=== PATIENT | female | born 1940 | race Caucasian/White ===

== ENCOUNTER → 2018-09-12 08:54 | Outpatient (CLI) | payer MEDICARE ==
[2018-09-12 10:02] LABS: BASOPHILS 0.1 % (0-2); HEMATOCRIT 39.8 % (36.0-48.0); HEMOGLOBIN 12.4 g/dL (12-16); IMMATURE GRANULOCYTES 0.2 % (0-5); LYMPHOCYTES 19.2 % (15-50); MCH 25.9 pg (26.0-34.0); MCHC 31.2 g/dL (31.0-37.0); MCV 83.1 fL (80.0-100.0); MEAN PLATELET VOLUME 10.1 fL (7.4-10.4); MONOCYTES 5.8 % (2-11); NEUTROPHILS 72.7 % (40-80); PLATELET COUNT 337 10x3/uL (130-400); RBC 4.79 10x6/uL (4.00-5.40); RDW 16.8 % (11.5-14.5)
[2018-09-12 10:24] LABS: APTT 30.4 SECONDS (22.8-39.4); INR 1.08 (0.85-1.17); PROTIME 13.5 SECONDS (11.6-15.0)
[2018-09-12 10:25] LABS: % SATURATION 9 % (15-55); IRON 39 ug/dl (35-150); TOTAL IRON BIND CAPACITY 428 ug/dl (260-445); UNSAT IRON BIND CAPACITY 389 ug/dl (150-375)
[2018-09-12 10:33] LABS: ALBUMIN 3.3 g/dL (3.4-5.0); ANION GAP 13.2 mmol/L (8-16); BILIRUBIN - DIRECT 0.13 mg/dL (0.00-0.30); BILIRUBIN - INDIRECT 0.22 mg/dL (0.00-1.00); BILIRUBIN - TOTAL 0.35 mg/dL (0.2-1.3); CALCIUM 8.8 mg/dL (8.5-10.1); CARBON DIOXIDE 30.6 mmol/L (21.0-32.0); CHOL - HDL RATIO 6.2 ratio (2.3-4.1); CREATININE - SERUM 0.9 mg/dL (0.6-1.3); LDL-HDL RATIO 4.1 ratio (1.5-3.5); POTASSIUM - SERUM 3.8 mmol/L (3.5-5.1); PROTEIN - SERUM 8.3 g/dL (6.4-8.2)
[2018-09-13 08:18] LABS: HAPTOGLOBIN 298 mg/dL (34-200); HEPATITIS C ANTIBODY <0.1 S/CO RAT (0.0-0.9)
[2018-09-13 12:16] LABS: ANA REFLEX - DIRECT Negative (Negative)
[2018-09-13 13:16] LABS: ALPHA FETOPROTEIN -(TUMOR MRK) 4.8 ng/mL (0.0-8.3)
[2018-09-14 14:16] LABS: MITOCHONDRIAL ANTIBODY <20.0 Units (0.0-20.0); SMOOTH MUSCLE ABS (ACTIN) 11 Units (0-19)
== END | disposition home or self-care (01) ==
LOC: D.US 08:54
PROVIDERS: Internal Medicine Gastroenterology
DX: R93.89 Abnormal findings on diagnostic imaging of other specified body structures (principal); R74.8 Abnormal levels of other serum enzymes; K76.0 Fatty (change of) liver, not elsewhere classified; D64.9 Anemia, unspecified; K92.1 Melena

== ENCOUNTER → 2018-11-24 10:44 | Outpatient (CLI) | payer OTHER | END | disposition home or self-care (01) | LOC: D.CT 10:00 | PROVIDERS: ATTEND Internal Medicine Gastroenterology | DX: R93.5 Abnormal findings on diagnostic imaging of other abdominal regions, including retroperitoneum (principal) ==

== ENCOUNTER 2019-01-02 10:26 | Observation (INO) | payer OTHER ==
[~2019-01-02] VITALS: Ht 154.9 cm; Wt 88.0 kg
[2019-01-02 11:15] LABS: BASOPHILS 0.1 % (0-2); EOSINOPHILS 1.7 % (0-7); HEMATOCRIT 40.3 % (36.0-48.0); HEMOGLOBIN 12.7 g/dL (12-16); IMMATURE GRANULOCYTES 0.4 % (0-5); LYMPHOCYTES 27.8 % (15-50); MCHC 31.5 g/dL (31.0-37.0); MEAN PLATELET VOLUME 10.3 fL (7.4-10.4); MONOCYTES 5.4 % (2-11); NEUTROPHILS 64.6 % (40-80); PLATELET COUNT 270 10x3/uL (130-400); RBC 4.53 10x6/uL (4.00-5.40); RDW 14.6 % (11.5-14.5); WBC 8.1 10x3/uL (4.8-10.8)
[2019-01-02 11:48] LABS: ALBUMIN 3.4 g/dL (3.4-5.0); ALKALINE PHOSPHATASE 120 U/L (46-116); ALT (SGPT) 37 U/L (10-68); APTT 30.8 SECONDS (22.8-39.4); BILIRUBIN - TOTAL 0.35 mg/dL (0.2-1.3); CALC OSMOLALITY 280 mosm/kg (275-300); CALCIUM 9.5 mg/dL (8.5-10.1); CARBON DIOXIDE 32.6 mmol/L (21.0-32.0); CHLORIDE - SERUM 102 mmol/L (98-107); CREATININE - SERUM 0.9 mg/dL (0.6-1.3); GLUCOSE 149 mg/dL (74-106); INR 1.06 (0.85-1.17); POTASSIUM - SERUM 4.5 mmol/L (3.5-5.1); PROTEIN - SERUM 8.1 g/dL (6.4-8.2); PROTIME 13.3 SECONDS (11.6-15.0); SODIUM 140 mmol/L (136-145); UREA NITROGEN 9 mg/dL (7-18); eGFR NON AFRICAN AMERICAN 64 mL/min (90-120)
[2019-01-02 12:03] LABS: CKMB 0.3 U/L (0.0-3.6); CREATINE KINASE 16 UL (21-215); PRO BNP 251 pg/mL (0-450); THYROID STIMULATING HORMONE 0.55 uIU/mL (0.36-3.74); TROPONIN-I < 0.017 ng/mL (0.000-0.060)
[2019-01-02 12:25] LABS: UDS - AMPHET NEGATIVE QUAL (NEGATIVE); UDS - BARB NEGATIVE QUAL (NEGATIVE); UDS - BENZO NEGATIVE QUAL (NEGATIVE); UDS - COCAINE NEGATIVE QUAL (NEGATIVE); UDS - OPIATE NEGATIVE QUAL (NEGATIVE); UDS - PCP NEGATIVE QUAL (NEGATIVE); UDS - THC NEGATIVE QUAL (NEGATIVE)
[2019-01-02 12:50] LABS: APPEARANCE CLEAR (CLEAR); BILIRUBIN NEGATIVE (NEGATIVE); COLOR YELLOW (YELLOW); GLUCOSE NEGATIVE (NEGATIVE); KETONE NEGATIVE (NEGATIVE); NITRITE NEGATIVE (NEGATIVE); PROTEIN NEGATIVE (NEGATIVE); UROBILINOGEN NORMAL (NORMAL)
[2019-01-02 12:54] LABS: BACTERIA FEW /hpf (NONE SEEN); EPITHELIAL CELLS RARE /hpf (0-5); WHITE CELLS - URINE RARE /hpf (0-5)
[2019-01-02] MEDS ORDERED: PERCOCET 7.5/321 TAB PO (13:15)
[2019-01-02] MEDS ORDERED: EFFEXOR75 MG PO (13:16)
[2019-01-02] MEDS ORDERED: ZYPREXA10 MG PO (13:16)
[2019-01-02] MEDS ORDERED: FERROUS SULFAT325 MG PO (13:16)
[2019-01-02] MEDS ORDERED: BUSPAR 15 MG TA15 MG PO (13:16)
[2019-01-02] MEDS ORDERED: OMEPRAZOLE20 M1 PO (13:17)
[2019-01-02] MEDS ORDERED: FUROSEMIDE40 MG PO (13:18)
[2019-01-02] MEDS ORDERED: GLUCOPHAGE500 MG PO (13:18)
[2019-01-02] MEDS ORDERED: SYNTHROID112 MCG PO (13:18)
[2019-01-02] MEDS ORDERED: LISINOPRIL2.5 MG PO (13:18)
[2019-01-02] MEDS ORDERED: COREG 3.1253.125 MG PO ×2 (13:18)
[2019-01-02] MEDS ORDERED: GLIPIZIDE10 MG PO (13:19)
[2019-01-02] MEDS ORDERED: TRESIBA FL100 UNIT/1 (13:19)
--- NOTE | 2019-01-02 13:38 | NUR ---
BEDSIDE GLUCOSE CHECK = 139MG/DL. DIABETIC TRAY SET UP AT BEDSIDE FOR PATIENT TO EAT.
[2019-01-02 15:27] VITALS: BP 150/68
[2019-01-02 15:29] VITALS: BMI 36.7
[2019-01-02 20:00] VITALS: BP 131/67
--- NOTE | 2019-01-02 20:14 | NUR ---
EVENING ROUNDS COMPLETED. VSS, AAOX4, NO S/S OF RR DISTRESS. RR EVEN AND UNLABORED. FAMILY @ BEDSIDE. DENIES ANY FURTHER NEEDS AT THIS TIME. WILL CPOC.
[2019-01-03] VITALS: BP 139/53
[2019-01-03 04:00] VITALS: BP 158/75
[2019-01-03 06:30] LABS: BASOPHILS 0.2 % (0-2); EOSINOPHILS 2.5 % (0-7); HEMATOCRIT 37.1 % (36.0-48.0); HEMOGLOBIN 11.6 g/dL (12-16); IMMATURE GRANULOCYTES 0.2 % (0-5); LYMPHOCYTES 29.5 % (15-50); MCH 27.9 pg (26.0-34.0); MCHC 31.3 g/dL (31.0-37.0); MCV 89.2 fL (80.0-100.0); MEAN PLATELET VOLUME 10.6 fL (7.4-10.4); MONOCYTES 9.9 % (2-11); NEUTROPHILS 57.7 % (40-80); PLATELET COUNT 244 10x3/uL (130-400); RBC 4.16 10x6/uL (4.00-5.40); RDW 14.9 % (11.5-14.5); WBC 6.5 10x3/uL (4.8-10.8)
[2019-01-03 07:17] LABS: ALBUMIN 3.1 g/dL (3.4-5.0); ANION GAP 11.7 mmol/L (8-16); BILIRUBIN - TOTAL 0.3 mg/dL (0.2-1.3); CARBON DIOXIDE 33.3 mmol/L (21.0-32.0); CHOL - HDL RATIO 4.5 ratio (2.3-4.1); CREATININE - SERUM 0.9 mg/dL (0.6-1.3); LDL-HDL RATIO 2.8 ratio (1.5-3.5); PROTEIN - SERUM 7.3 g/dL (6.4-8.2)
[2019-01-03 09:56] VITALS: BP 166/60
[2019-01-03 12:10] VITALS: BP 152/64
[2019-01-03 12:24] VITALS: Ht 154.9 cm; Wt 88.0 kg
[2019-01-03] MEDS ORDERED: ASPIRIN81 MG PO (13:58)
--- NOTE | 2019-01-03 15:37 | EC ---
PATIENT:MARTIN HOLLINGSWORTH DATE OF SERVICE: 01/02/19 SEX: F MEDICAL RECORD: [id number] DATE OF : 38 LOCATION:D.M2 D.212 AGE OF PATIENT: 78 ADMISSION DATE: 01/02/19 REFERRING PHYSICIAN: INTERPRETING PHYSICIAN: LORE GRANDE MD ECHOCARDIOGRAM REPORT ECHO CHARGES 4 ECHO COMPLETE Date: 01/02/19 CLINICAL DIAGNOSIS: SOB, CHF, POSSIBLE STROKE ECHOCARDIOGRAPHIC MEASUREMENTS (adult normal given) AC root (d.<3.7cm) 2.6 cm LV Septum d (<1.2 cm> 0.9 cm Valve Excursion 0.8 cm LV Septum (systole) 1.1 cm Left Atria (s.<4.0cm> 3.5 cm LVPW d(<1.2cm) 0.9 cm RV (d.<2.3cm) 2.2 cm LVPW (sytole) 1.6 cm LV diastole(<5.6CM) 5.8 cm MV E-F(>70mm/sec) cm LV systole 4.8 cm LVOT Diameter 1.9 cm MV exc.(>10mm) cm Est.ejection fraction (50-75%) % DOPPLER: LVIT cm/sec A 76 cm/sec E 56 cm/sec LA cm/sec RVSP 18.0 mmHg LVOT 89 cm/sec AOP1/2T m/s Asc. Ao 155 cm/sec RVOT 69 cm/sec RA cm/sec PA 95 cm/sec AV Gradient Peak 9.6 mmHg AV Mean 6.5 mmHg AV Area 1.7 cm MV Gradient Peak 3.8 mmHg MV Mean 2.4 mmHg MV Area cm COMMENTS: Educational Resource Coordinator: Lela ADAMS Per Diem Interpreter: 3 Dr. López TAPE# PACS Pericardial Effusion N DATE OF SERVICE: Adequate 2D, color flow, spectral Doppler, and M-Mode. No LVH. LV internal dimensions are normal. LV appears to be mildly globally hypo with LV function borderline normal to mildly reduced estimated 45% to 50%. Aortic valve sclerosis without evidence of stenosis by Doppler interrogation. Left atrium normal at 3.5 cm. Mitral valve shows no prolapse. Mild MR. Right-sided chambers grossly normal. Trace TR. ECHOCARDIOGRAM REPORT [id number] MARTIN HOLLINGSWORTH TRANSINT:[id number] Voice Confirmation ID: [id number] DOCUMENT ID: [id number] LORE GRANDE MD at 1537 CC: [id number] DICTATION DATE: 01/03/19 1321 SOD STRIPPER: 01/03/19 1518 ADM IN [facility] [address] [id number]
--- NOTE | 2019-01-03 16:26 | NUR ---
ALERT AND ORIENTED X4. SITTING UP IN BED. DISCHARGE INSTRUCTIONS GIVEN VERBALLY AND WRITTEN. DISCHARGE PAPERS SIGNED ON CHART. DC RT FA IV TIP INTACT. ESCORT TO RIDE VIA WHEELCHAIR. REMAINS FREE FROM INJURY.
== END 2019-01-03 16:27 | disposition home or self-care (01) ==
LOC: D.ER 10:26 → D.M2 14:20 → OBSVTIME 14:21 → D.M2 01-03 16:27
PROVIDERS: Emergency Medicine; Family Medicine; ADMIT Family Medicine; ATTEND Family Medicine
DX: G45.9 Transient cerebral ischemic attack, unspecified (principal); E11.65 Type 2 diabetes mellitus with hyperglycemia; E03.9 Hypothyroidism, unspecified; I11.0 Hypertensive heart disease with heart failure; I50.22 Chronic systolic (congestive) heart failure

== ENCOUNTER 2019-06-04 16:11 | Emergency (ER) | payer OTHER ==
[~2019-06-04] VITALS: Ht 154.9 cm; Wt 90.9 kg
[~2019-06-04 16:11] MED LIST: ASPIRIN81 MG PO; BUSPAR 15 MG TA15 MG PO; COREG 3.1253.125 MG PO; EFFEXOR75 MG PO; FERROUS SULFAT325 MG PO; FUROSEMIDE40 MG PO; GLIPIZIDE10 MG PO; GLUCOPHAGE500 MG PO; LISINOPRIL2.5 MG PO; OMEPRAZOLE20 M1 PO; PERCOCET 7.5/321 TAB PO; SYNTHROID112 MCG PO; TRESIBA FL100 UNIT/1; ZYPREXA10 MG PO
[2019-06-04 16:23] VITALS: Ht 154.9 cm; Wt 90.9 kg
[2019-06-04 16:50] LABS: BASOPHILS 0.2 % (0-2); HEMATOCRIT 28.1 % (36.0-48.0); HEMOGLOBIN 8.2 g/dL (12-16); IMMATURE GRANULOCYTES 0.6 % (0-5); LYMPHOCYTES 14.7 % (15-50); MCH 27.6 pg (26.0-34.0); MCHC 29.2 g/dL (31.0-37.0); MCV 94.6 fL (80.0-100.0); MEAN PLATELET VOLUME 9.5 fL (7.4-10.4); MONOCYTES 8.7 % (2-11); NEUTROPHILS 73.8 % (40-80); RBC 2.97 10x6/uL (4.00-5.40); RDW 16.6 % (11.5-14.5); WBC 10.9 10x3/uL (4.8-10.8)
[2019-06-04 16:52] LABS: PLATELET COUNT 405 10x3/uL (130-400)
[2019-06-04 16:59] LABS: APTT 27.2 SECONDS (22.8-39.4); INR 1.06 (0.85-1.17); PROTIME 13.3 SECONDS (11.6-15.0)
[2019-06-04 17:00] LABS: CALC OSMOLALITY 290 mosm/kg (275-300); CALCIUM 8.3 mg/dL (8.5-10.1); CHLORIDE - SERUM 103 mmol/L (98-107); CREATININE - SERUM 0.7 mg/dL (0.6-1.3); SODIUM 144 mmol/L (136-145); UREA NITROGEN 11 mg/dL (7-18); eGFR NON AFRICAN AMERICAN 85 mL/min (90-120)
[2019-06-04 17:10] LABS: GLUCOSE 191 mg/dL (74-106)
[2019-06-04 17:17] LABS: ALBUMIN 2.9 g/dL (3.4-5.0); ALKALINE PHOSPHATASE 143 U/L (46-116); ALT (SGPT) 41 U/L (10-68); BILIRUBIN - TOTAL 0.24 mg/dL (0.2-1.3); CKMB 0.7 U/L (0.0-3.6); CREATINE KINASE 18 UL (21-215); MAGNESIUM - SERUM 1.9 mg/dL (1.8-2.4); PROTEIN - SERUM 6.8 g/dL (6.4-8.2); TROPONIN-I 0.019 ng/mL (0.000-0.060)
[2019-06-04 21:54] VITALS: BP 134/88
== END 2019-06-04 21:54 | disposition home or self-care (01) ==
LOC: D.ER 16:11
PROVIDERS: Family Medicine
DX: M54.5 Low back pain (principal); E11.9 Type 2 diabetes mellitus without complications; Z79.84 Long term (current) use of oral hypoglycemic drugs; I50.9 Heart failure, unspecified; M19.90 Unspecified osteoarthritis, unspecified site; I11.0 Hypertensive heart disease with heart failure

== ENCOUNTER → 2019-06-16 09:46 | Outpatient (CLI) | payer OTHER ==
[2019-06-04 16:23] VITALS: BMI 37.8
[2019-06-16 10:26] LABS: HEMATOCRIT 37.4 % (36.0-48.0); HEMOGLOBIN 11.5 g/dL (12-16); LYMPHOCYTES 16.8 % (15-50); MCH 26.8 pg (26.0-34.0); MCHC 30.7 g/dL (31.0-37.0); MCV 87.2 fL (80.0-100.0); MEAN PLATELET VOLUME 9.9 fL (7.4-10.4); PLATELET COUNT 402 10x3/uL (130-400); RBC 4.29 10x6/uL (4.00-5.40); RDW 15.4 % (11.5-14.5); WBC 9.5 10x3/uL (4.8-10.8)
[2019-06-16 10:48] LABS: ALBUMIN 3.3 g/dL (3.4-5.0); ANION GAP 10.2 mmol/L (8-16); BILIRUBIN - DIRECT 0.13 mg/dL (0.00-0.30); BILIRUBIN - INDIRECT 0.27 mg/dL (0.00-1.00); BILIRUBIN - TOTAL 0.4 mg/dL (0.2-1.3); CALCIUM 9.5 mg/dL (8.5-10.1); CARBON DIOXIDE 33.6 mmol/L (21.0-32.0); CREATININE - SERUM 1.2 mg/dL (0.6-1.3); POTASSIUM - SERUM 4.8 mmol/L (3.5-5.1); PROTEIN - SERUM 8.8 g/dL (6.4-8.2)
[2019-06-16 10:51] LABS: INR 1.07 (0.85-1.17); PROTIME 13.4 SECONDS (11.6-15.0)
== END | disposition home or self-care (01) ==
LOC: D.CT 09:46
PROVIDERS: ATTEND Internal Medicine Gastroenterology
DX: R93.89 Abnormal findings on diagnostic imaging of other specified body structures (principal); K76.9 Liver disease, unspecified